=== PATIENT | male | born 1985 | race Two or more races ===

== ENCOUNTER 2023-01-19 07:40 | Day surgery (SDC) | payer OTHER ==
[~2023-01-19] VITALS: Ht 182.9 cm; Wt 84.4 kg
== END 2023-01-19 12:05 | disposition home or self-care (01) ==
LOC: CIR.AMB 07:40
PROVIDERS: ATTEND Orthopaedic Surgery Hand Surgery
DX: M65.341 Trigger finger, right ring finger (principal); Z20.822 Contact with and (suspected) exposure to COVID-19